=== PATIENT | male | born 1990 | race Caucasian/White ===

== ENCOUNTER 2016-09-08 17:55 | Emergency (ER) | payer SELFPAY ==
--- NOTE | 2016-09-08 18:11 | Emergency Department Record ---
History of Present Illness - General Chief complaint: Rash Stated complaint: POISON MILADIS IN EYE? Time Seen by Provider: 09/08/16 18:07 Source: Patient Mode of Arrival: Ambulatory Limitations: No limitations - History of Present Illness Initial comments: The patient is here due to L eye irritation for one day. He woke up OK this AM and since about 10am the L eye has been irritated and red. He denies any drainage, eye pain, photophobia, blurred vision, or swelling. The patient does not wear contacts. The patient did see someone at an an hour ago and was told to go to the ER due to possibly having poison miladis in his eye. The patient did have poison miladis earlier in the week but is now gone. He denies any arm or leg rash or itching. The patient denies any ST, cough, nasal drainage or ear pain. MD complaint: Other Onset/Timin -: Days(s) Quality: Other Context: None - Related Data Previous Rx's Medication Instructions Recorded Erythromycin Base [Erythromycin 1 apply AFFEYE QID #1 tube 09/08/16 OPTH Ointment] Allergies Allergy/AdvReac Type Severity Reaction Status Date / Time Sulfa (Sulfonamide AdvReac NAUSEA AND Verified 09/08/16 18:07 Antibiotics) VOMITING sulfamethoxazole AdvReac NAUSEA AND Verified 09/08/16 18:07 [From Bactrim] VOMITING trimethoprim [From Bactrim] AdvReac NAUSEA AND Verified 09/08/16 18:07 VOMITING Travel Screening - Travel/Exposure Within Last 30 Days Have you traveled within the last 30 days?: No - Travel/Exposure Within Last Year Have you traveled outside the [place] in the last year?: No - Additonal Travel Details Have you been exposed to anyone with a communicable illness?: No - Travel Symptoms Symptom Screening: None Review of Systems Constitutional: Denies: Chills, Fever Eyes: Denies: Eye discharge, Eye pain, Photophobia ENT: Denies: Congestion, Ear pain Respiratory: Denies: Cough, Dyspnea Past Medical History - SOCIAL HISTORY Smoking Status: Never smoker Alcohol Use: Rare Drug Use: None - RESPIRATORY Hx Respiratory Disorders: No - CARDIOVASCULAR Hx Cardio Disorders: No - NEURO Hx Neuro Disorders: No - GI Hx GI Disorders: Yes Hx Hiatal Hernia: Yes - Hx Genitourinary Disorders: No - ENDOCRINE Hx Endocrine Disorders: No - MUSCULOSKELETAL Hx Musculoskeletal Disorders: No - PSYCH Hx Psych Problems: No - HEMATOLOGY/ONCOLOGY Hx Hematology/Oncology Disorders: No Family Medical History Any Significant Family History?: No Hx Heart Disease: Grandparents Hx HTN: Father, Mother Physical Exam - General General Appearance: Alert, Oriented x3, Cooperative, No acute distress - Head Head exam: Atraumatic, Normocephalic, Normal inspection - Eye Eye exam: Normal appearance, PERRL, Conjunctival injection (There is mild L eye conjunctival injection. ), EOMI, Other (The L cornea is clear on Slit lamp exam and there is no Flourescein uptake. There is no FB on lid eversion.). negative : Periorbital swelling (THere is no swelling around the L eye.), Periorbital tenderness, Scleral icterus - ENT ENT exam: Normal orophraynx. negative: TM's normal bilaterally (There are chronic changes to the TM's bilaterally but the patient states that is most likely normal for him. He has a long hx of chronic ear issues.) Teeth exam: Normal inspection. negative: Dental caries Throat exam: Normal inspection. negative: Tonsillar erythema, Tonsillar exudate - Neck Neck exam: Normal inspection, Full ROM. negative: Tenderness Course Vital Signs 09/08/16 17:57 Temperature 97.9 F Pulse Rate 75 Respiratory 16 Rate Blood Pressure 142/72 Pulse Ox 99 - Reevaluation(s) Reevaluation #1: I did explain to the patient that it appears he has a form of conjunctivitis in the L eye. He is to use the Emycin Opth ointment in the L eye and return to a UC or the ER if not better in 2-3 days. He also was directed to follow up with his ENT specialist to have his ears rechecked. 09/08/16 18:33 09/08/16 18:41 Disposition Disposition: Discharge Clinical Impression: Conjunctivitis Qualifiers: Conjunctivitis type: acute Acute conjunctivitis type: unspecified Laterality: left Qualified Code(s): H10.32 - Unspecified acute conjunctivitis, left eye Disposition: Home, Self-Care Condition: (1) Good Instructions: Conjunctivitis (ED) Additional Instructions: Please use warm compresses to the L eyelid when possible during the day. Please use the Emycin Opth. Ointment as directed. Return to the ER or UC if not better in 2-3 days and sooner if worse. Prescriptions: Erythromycin Base [Erythromycin OPTH Ointment] 1 apply CHANELLE PENNINGTOND #1 tube Forms: Patient Portal Access Time of Disposition: 18:36 Quality - Quality Measures Quality Measures: N/A - Blood Pressure Screening View Details: Yes Blood Pressure Classification: Hypertensive Reading Systolic Measurement: 142 Diastolic Measurement: 72 Screening for High Blood Pressure: < Pre-Hypertensive BP, F/U Documented > [ G8950] Pre-Hypertensive Follow-up Interventions: Follow-up with rescreen every year.
[2016-09-08] MEDS: PROPARACAINE HCL OPTH 15ML BTL OPTH ONE (18:40)
== END 2016-09-08 18:43 | disposition home or self-care (01) ==
LOC: ER 17:55
DX: H10.32 Unspecified acute conjunctivitis, left eye (principal)
CPT/HCPCS: 99283

== ENCOUNTER 2016-09-11 14:02 | Emergency (ER) | payer SELFPAY ==
--- NOTE | 2016-09-11 14:53 | Emergency Department Record ---
History of Present Illness - General Chief complaint: Eye Problem Stated complaint: RECHECK LT EYE Time Seen by Provider: 09/11/16 14:50 Source: Patient Mode of Arrival: Ambulatory Limitations: No limitations - History of Present Illness Initial comments: The patient is here due to a 4 day hx of L eye irritation and redness. He denies any visual changes, eye pain, photophobia or double vision. The eye is irritated mildly and is tearing and in the AM there is a lot of crusting. He was seen in the ER 3 days ago and did have a neg Slit Lamp exam and flourescein staining of the cornea. He was placed on Emycin Opthalmic Ointment but now is not better so he decided to come to the ER for recheck. chief complaint: Eye redness Onset/Timin -: Days(s) Onset Description: Awoke with symptoms Location: Left eye Place: Home Severity: Moderate Severity scale (1-10): 5 If Pain, Quality: Aching Consistency: Constant Associated Symptoms: None Treatments Prior to Arrival: Other - Related Data Visual acuity (L) = 20/: 25 Visual acuity (R) = 20/: 20 With correction: Yes Patient Tetanus UTD (within 5 yrs): Yes Previous Rx's Medication Instructions Recorded Erythromycin Base [Erythromycin 1 apply AFFEYE QID #1 tube 09/08/16 OPTH Ointment] Moxifloxacin HCl [Vigamox] 3 ml OP QID #1 drops 09/11/16 Allergies Allergy/AdvReac Type Severity Reaction Status Date / Time Sulfa (Sulfonamide AdvReac NAUSEA AND Verified 09/11/16 14:37 Antibiotics) VOMITING sulfamethoxazole AdvReac NAUSEA AND Verified 09/11/16 14:37 [From Bactrim] VOMITING trimethoprim [From Bactrim] AdvReac NAUSEA AND Verified 09/11/16 14:37 VOMITING Travel Screening - Travel/Exposure Within Last 30 Days Have you traveled within the last 30 days?: No - Travel/Exposure Within Last Year Have you traveled outside the [place] in the last year?: No - Additonal Travel Details Have you been exposed to anyone with a communicable illness?: No - Travel Symptoms Symptom Screening: None Review of Systems Eyes: Reports: Eye discharge. Denies: Eye pain, Photophobia, Vision change ENT: Denies: Congestion Past Medical History - SOCIAL HISTORY Smoking Status: Never smoker Alcohol Use: None Drug Use: None - RESPIRATORY Hx Respiratory Disorders: No - CARDIOVASCULAR Hx Cardio Disorders: No - NEURO Hx Neuro Disorders: No - GI Hx GI Disorders: Yes Hx Hiatal Hernia: Yes - Hx Genitourinary Disorders: No - ENDOCRINE Hx Endocrine Disorders: No - MUSCULOSKELETAL Hx Musculoskeletal Disorders: No - PSYCH Hx Psych Problems: No - HEMATOLOGY/ONCOLOGY Hx Hematology/Oncology Disorders: No Family Medical History Any Significant Family History?: Yes Hx Heart Disease: Grandparents Hx HTN: Father, Mother Physical Exam - General General Appearance: Alert, Oriented x3, Cooperative, No acute distress - Head Head exam: Atraumatic, Normocephalic, Normal inspection - Eye Eye exam: Normal appearance, PERRL, Conjunctival injection (mod to the L eye.), EOMI. negative: Periorbital swelling, Periorbital tenderness Visual acuity (L) = 20/: 25 Visual acuity (R) = 20/: 20 With correction: Yes IOP (L) in mmH Course Vital Signs 09/11/16 14:30 Temperature 98.1 F Pulse Rate 75 Respiratory 20 Rate Blood Pressure 145/81 Pulse Ox 99 - Reevaluation(s) Reevaluation #1: I did discuss the options with the patient and the need for F/U. He will be referred to Dr. Galindo for his clinic. 09/11/16 15:16 Disposition Disposition: Discharge Clinical Impression: Conjunctivitis Qualifiers: Conjunctivitis type: acute Acute conjunctivitis type: unspecified Laterality: left Qualified Code(s): H10.32 - Unspecified acute conjunctivitis, left eye Disposition: Home, Self-Care Condition: (1) Good Instructions: Conjunctivitis (ED) Additional Instructions: Please stop the Emycin ointment and start the Levofloxacin drops. Please see an eye doctor for recheck tomorrow. Please see Dr. Galindo in the office here in the Specialty clinic in 4 days if not better. Prescriptions: Moxifloxacin HCl [Vigamox] 3 ml OP QID #1 drops Referrals: [facility] Special[facility] [Provider Group] Forms: Patient Portal Access Time of Disposition: 15:20 Quality - Quality Measures Quality Measures: N/A - Blood Pressure Screening View Details: Yes Blood Pressure Classification: Pre-Hypertensive BP Reading Systolic Measurement: 145 Diastolic Measurement: 81 Screening for High Blood Pressure: < Pre-Hypertensive BP, F/U Documented > [ G8950] Pre-Hypertensive Follow-up Interventions: Follow-up with rescreen every year.
[2016-09-11] MEDS ORDERED: PROPARACAINE HCL OPTH 15ML BTL OPTH ONE (14:58)
== END 2016-09-11 15:31 | disposition home or self-care (01) ==
LOC: ER 14:02
DX: H10.32 Unspecified acute conjunctivitis, left eye (principal)
CPT/HCPCS: 99282